=== PATIENT | female | born 1975 | race Two or more races ===

== ENCOUNTER 2017-09-23 21:02 | Emergency (ER) | payer MEDICAID ==
[~2017-09-23] VITALS: Ht 157.5 cm; Wt 80.0 kg
[2017-09-23] MEDS ORDERED: DICL100G15 TOP (22:02)
[2017-09-23] MEDS ORDERED: IBUP-1986 PO (22:02)
[2017-09-23 22:21] VITALS: BP 138/76
== END 2017-09-23 22:23 | disposition home or self-care (01) ==
LOC: ER 21:02
DX: M77.12 Lateral epicondylitis, left elbow (principal); Z98.890 Other specified postprocedural states; Z79.899 Other long term (current) drug therapy
CPT/HCPCS: 99283

== ENCOUNTER 2017-12-28 12:24 | Emergency (ER) | payer MEDICAID ==
[~2017-12-28] VITALS: Ht 157.5 cm; Wt 81.8 kg
[~2017-12-28 12:24] MED LIST: DICL100G15 TOP; IBUP-1986 PO
[2017-12-28 12:28] VITALS: BP 110/71
== END 2017-12-28 13:43 | disposition home or self-care (01) ==
LOC: ER 12:25
DX: M72.2 Plantar fascial fibromatosis (principal); Z98.51 Tubal ligation status
CPT/HCPCS: 99281